=== PATIENT | male | born 1935 | race Caucasian/White ===

== ENCOUNTER 2018-07-29 17:58 | Outpatient (CLI) | payer MEDICARE, BC ==
[~2018-07-29] VITALS: Ht 180.3 cm; Wt 80.9 kg
[~2018-07-29 17:58] MED LIST: BAYER CHEWABLE81 MG PO; BUSPAR5 MG PO; CARDURA2 MG PO; FLOVENT DI50 MCG/DIS INH; HYZAAR 100-25 T1 TAB PO; LEVEMIR100 U/M1 SC; NEXIUM40 MG PO; NORVASC5 MG PO; PRADAXA150 MG PO; SYNTHROID100 MCG; ZEBETA5 MG PO
--- NOTE | 2018-07-29 19:43 | NUR ---
PT RECEIVED WITH EYES OPEN. NO COMPLAINTS OF PAIN. CALL LIGHT IN REACH. WILL CONTINUE TO OBSERVE.
--- NOTE | 2018-07-29 20:33 | NUR ---
18 GA TO RIGHT AC, FLUSHED WITHOUT DIFFICULTY. WILL CONTINUE TO OBSERVE.
--- NOTE | 2018-07-29 21:10 | NUR ---
IST UNIT OF [facility] TRANSFUSING. PT TOLERATING WELL. COMPUTER IN ROOM NO WORKING, PT RECEIVED PRETRANSFUSION MEDICATION WITHOUT DIFFICULTY. WITH MEDS SIGNED OUT ON ANOTHER COMPUTER. WILL CONTINUE TO BSERVE.
[2018-07-29 21:20] VITALS: BP 120/54
--- NOTE | 2018-07-29 23:58 | NUR ---
IST UNIT [facility] COMPLETED AND FLUSING. PT TOLERATED WELL. WILL CONTINUE TO OBSERVE.
--- NOTE | 2018-07-30 00:04 | NUR ---
2ND UNIT [facility] TRANSFUSING. TOLERATING WELL.
[2018-07-30 00:26] VITALS: BP 133/69; BP 135/71; Ht 180.3 cm; Wt 80.9 kg
[2018-07-30 04:38] VITALS: BP 139/69
--- NOTE | 2018-07-30 04:55 | NUR ---
TRANSFUSION COMPLETED, IV REMOVED AND PT DISCHARGED. PT TO SONS CAR VIA WHEELCHAIR WITH NURSE.
== END 2018-07-30 04:50 | disposition home or self-care (01) ==
LOC: D.OPS 17:58 → D.MS 17:59 → D.OPS 07-30 04:50
PROVIDERS: ATTEND Legal Medicine
DX: D64.9 Anemia, unspecified (principal); I25.10 Atherosclerotic heart disease of native coronary artery without angina pectoris; R53.81 Other malaise; R53.83 Other fatigue; C64.9 Malignant neoplasm of unspecified kidney, except renal pelvis

== ENCOUNTER → 2018-09-18 11:51 | Outpatient (CLI) | payer MEDICARE, BC ==
[2018-07-30 00:26] VITALS: BMI 24.8
[2018-09-18 12:20] LABS: HEMATOCRIT 20.5 % (42.0-54.0); MCH 35.5 pg (26.0-34.0); MCHC 34.1 g/dL (31.0-37.0); MCV 104.1 fL (80.0-100.0); MEAN PLATELET VOLUME 10.2 fL (7.4-10.4); PLATELET COUNT 289 10x3/uL (130-400); RBC 1.97 10x6/uL (4.20-6.10); RDW 22.5 % (11.5-14.5); WBC 8.8 10x3/uL (4.8-10.8)
[2018-09-18 14:20] LABS: EOSINOPHILS 1 % (0-7); LYMPHOCYTES 61 % (15-50); MONOCYTES 7 % (2-11); NEUTROPHILS 31 % (40-80)
[2018-09-18 14:21] LABS: ANISOCYTOSIS OCC; PLATELET ESTIMATE NORMAL
== END | disposition home or self-care (01) ==
LOC: D.LABREF 11:51
PROVIDERS: ATTEND Legal Medicine
DX: D64.89 Other specified anemias (principal); C65.9 Malignant neoplasm of unspecified renal pelvis

== ENCOUNTER → 2018-10-02 11:12 | Outpatient (CLI) | payer MEDICARE, BC ==
[2018-07-30 00:26] VITALS: BMI 24.8
[2018-10-02 11:29] LABS: HEMATOCRIT 23.3 % (42.0-54.0); HEMOGLOBIN 7.9 g/dL (13.5-17.5); MCH 34.5 pg (26.0-34.0); MCHC 33.9 g/dL (31.0-37.0); MCV 101.7 fL (80.0-100.0); MEAN PLATELET VOLUME 9.6 fL (7.4-10.4); PLATELET COUNT 208 10x3/uL (130-400); RBC 2.29 10x6/uL (4.20-6.10); RDW 22.5 % (11.5-14.5)
[2018-10-02 12:05] LABS: ANISOCYTOSIS OCC; EOSINOPHILS 1 % (0-7); HYPOCHROMASIA OCC; LYMPHOCYTES 53 % (15-50); MONOCYTES 8 % (2-11); NEUTROPHILS 38 % (40-80); PLATELET ESTIMATE NORMAL
== END | disposition home or self-care (01) ==
LOC: D.LABREF 11:12
PROVIDERS: ATTEND Legal Medicine
DX: C65.9 Malignant neoplasm of unspecified renal pelvis (principal); D64.89 Other specified anemias